=== PATIENT | female | born 1980 | race Caucasian/White ===

== ENCOUNTER → 2018-08-27 | Outpatient (CLI) | payer OTHER ==
[2018-08-22 11:00] VITALS: BP 112/82
[~2018-08-27] MED LIST: FERR325T14 PO; LISD30CA5 PO; MEDR5TAB PO; OXYC1TAB15 PO; RISP4TAB2 PO; TOPI25CA PO
== END | disposition home or self-care (01) ==
LOC: PMGWOUND 12:42
PROVIDERS: ATTEND Emergency Medicine Undersea and Hyperbaric Medicine
DX: T24.331A Burn of third degree of right lower leg, initial encounter (principal); T31.0 Burns involving less than 10% of body surface; F31.9 Bipolar disorder, unspecified; F41.9 Anxiety disorder, unspecified; J45.909 Unspecified asthma, uncomplicated; F17.210 Nicotine dependence, cigarettes, uncomplicated; G43.909 Migraine, unspecified, not intractable, without status migrainosus; F15.10 Other stimulant abuse, uncomplicated; K21.9 Gastro-esophageal reflux disease without esophagitis; Z90.49 Acquired absence of other specified parts of digestive tract; Z90.710 Acquired absence of both cervix and uterus; X08.8XXA Exposure to other specified smoke, fire and flames, initial encounter; Y93.89 Activity, other specified; Y99.8 Other external cause status; Y92.89 Other specified places as the place of occurrence of the external cause
CPT/HCPCS: G0463